=== PATIENT | male | born 1995 | race Caucasian/White ===

== ENCOUNTER 2025-10-02 13:38 | Emergency (ER) | payer SELFPAY ==
[2025-10-02] MEDS ORDERED: Orphenadrine Citrate 60 MG/2 ML VIAL ONE (14:21)
== END 2025-10-02 14:55 | disposition home or self-care (01) ==
LOC: ERS 13:38
DX: S33.5XXA Sprain of ligaments of lumbar spine, initial encounter (principal); X58.XXXA Exposure to other specified factors, initial encounter; Y93.67 Activity, basketball
CPT/HCPCS: 96372; 99282; J2360; J2919